=== PATIENT | male | born 1945 | race Caucasian/White ===

== ENCOUNTER 2018-02-20 22:11 | Emergency (ER) | payer MEDICARE, BC ==
[~2018-02-20] VITALS: Ht 167.6 cm; Wt 68.0 kg
[2018-02-20] MEDS ORDERED: FINA5TAB11 PO (22:22)
[2018-02-20] MEDS ORDERED: SULF1TAB48 PO (22:22)
--- NOTE | 2018-02-20 22:45 | NUR ---
DR CROW, OBEY MD AT BEDSIDE FOR MSE.
[2018-02-20] MEDS ORDERED: LIDOCAINE 2% (UROJET) 10 ML JELLY MM ONE ×2 (22:53→23:00)
[2018-02-20 23:11] LABS: *BILIRUBIN,URIN NEGATIVE (NEGATIVE); *BLOOD, URINE 1+ (NEGATIVE); *CLARITY,URINE CLEAR (CLEAR); *COLOR,URINE YELLOW (YELLOW); *KETONES,URINE TRACE (NEGATIVE); *PROTEIN,URINE NEGATIVE (NEGATIVE); *UROBILINOGEN,URINE 0.2 E.U./dl (NORMAL); LEUKOCYTE ESTERASE ,URINE NEGATIVE (NEGATIVE); NITRITE, URINE NEGATIVE (NEGATIVE); UGLUCOSE NEGATIVE (NEGATIVE)
[2018-02-20 23:17] LABS: BACTERIA,URINE NONE SEEN /HPF (NONE SEEN); RBC,URINE 20-50 /HPF (0-3); SQUAMOUS EPITHELIAL CELL,UR FEW /HPF (NONE SEEN)
[2018-02-20] MEDS ORDERED: LORAZEPAM 0.5 MG TABLET PO ONE (23:45)
[2018-02-21] MEDS ORDERED: LORAZEPAM 0.5 MG TABLET ONE (00:07)
--- NOTE | 2018-02-21 00:20 | NUR ---
Patient discharged to home in stable conditon. Written and verbal after care instructions given. Patient verbalizes understanding of instructions. Pt ambulated from ER w/ walker, accompanied by daughter.
[2018-02-21 00:55] VITALS: BP 143/87
== END 2018-02-21 00:20 | disposition home or self-care (01) ==
LOC: ER 22:14
DX: R33.9 Retention of urine, unspecified (principal); Z79.899 Other long term (current) drug therapy
CPT/HCPCS: 87086; A4663